=== PATIENT | male | born 1985 | race Caucasian/White ===

== ENCOUNTER 2019-01-04 07:14 | Day surgery (SDC) | payer OTHER ==
--- NOTE | 2019-01-04 08:20 | Anesthesia Consultation ---
Anesthesia Consult and Med Hx Date of service: 01/04/19 - Airway Anesthetic Teeth Evaluation: Good ROM Head & Neck: Adequate Mental/Hyoid Distance: Adequate Mallampati Class: Class II Intubation Access Assessment: Probably Good - Pulmonary Exam CTA: Yes - Cardiac Exam Cardiac Exam: No Murmur - Pre-Operative Health Status ASA Pre-Surgery Classification: ASA1 Proposed Anesthetic Plan: MAC
--- NOTE | 2019-01-04 08:20 | Anesthesia Day of Surgery ---
Anesthesia Day of Surgery - Day of Surgery Patient Examined: Yes Patient H&P Reviewed: Yes Patient is NPO: Yes Beta Blockers: No
[2019-01-04] MEDS ORDERED: DIPRIVAN 10 MG/ML IV ONE ×2 (08:32)
[2019-01-04] MEDS ORDERED: NACL 0.9% 1000 ML 1,000 ML IV SCH (09:00)
[2019-01-04] MEDS ORDERED: WATER FOR IRRIG STERILE ONE (09:10)
[2019-01-04] MEDS ORDERED: VERSED ONE (09:13)
--- NOTE | 2019-01-04 09:53 | Procedure Note ---
Date of procedure: 01/04/19 Pre-op diagnosis: Gastrointestinal bleeding Post-op diagnosis: other (Mild to Moderate Distal Erosive Esophagitis/ Gastritis/No Peptic Ulcer Disease noted/Colon AVM (Transverse Colon) possible source of the GI Bleeding -treated with APC laser/Recto-Sigmoid Polyp removed by Cold,Snare Polypectomy and retrieved) Procedure: EGD with Biopsy/ Colonoscopy with APC laser use and Cold, Snare Polypectomy Anesthesia: MAC Surgeon: WILLIAM CERVANTES Estimated blood loss: minimal Pathology: list Specimen disposition: to lab Condition: stable Disposition: same day (Continue treatment with PPI and avoid aspirin and NSAID for 5 days and follow up in 1 to 2 weeks ([phone]).)
[2019-01-04 10:20] VITALS: BP 118/70
--- NOTE | 2019-01-04 10:37 | Operative Report ---
PROCEDURE: EGD with biopsy. INDICATIONS: This is a 33-year-old gentleman who had a back injury for which he was taking NSAIDs and had some GI bleeding. EGD was done to make sure that there was not any significant upper GI pathology accounting for the patient's bleeding. DESCRIPTION OF PROCEDURE: Procedure was done after getting informed consent with MAC anesthesia. Instrument was passed through the hypopharynx into the esophagus, which showed some mild to moderate distal erosive esophagitis. Stomach showed some mild gastritis. Biopsy was done from the antrum. There were no gastric ulcers noted in the straight or the retroverted view. The pylorus is patent. The duodenum in the first and the second portion appeared normal. There was minimal bleeding from the biopsy sites and no complications associated with the procedure; however, as the procedure was being ended, the patient had a drop in his oxygen saturation and the scope was withdrawn. It was at the end of the examination at any rate and the patient's oxygen level came up after the withdrawal of the scope and once the amount of oxygen given to him was also increased. Other than that, there were no additional complications or any other adverse effect associated with the procedure. ASSESSMENT: History of gastrointestinal bleeding. No active upper GI bleeding noted. Mild to moderate distal erosive esophagitis, gastritis. No peptic ulcer disease noted. There was minimal bleeding from the biopsy sites. No complications associated with the procedure, other than the drop in the oxygen level which came up with the withdrawal of the scope and giving the patient additional oxygen. The patient is to have a colonoscopy done for further assessment. Bernie LORENZO was in the room throughout the entirety of the procedure. JOB# [id number] DANIEL/PHILLIP
--- NOTE | 2019-01-04 10:48 | Operative Report ---
PROCEDURE: Colonoscopy with use of the APC laser and cold snare polypectomy. INDICATIONS: This is a 33-year-old gentleman who had some GI bleeding following the use of NSAID after a back injury. EGD had shown some mild to moderate distal erosive esophagitis and gastritis, but no evidence of any active upper GI bleeding or no evidence of any peptic ulcer disease. DESCRIPTION OF PROCEDURE: The procedure was done after getting informed consent with MAC anesthesia. Initial rectal exam was unremarkable. The patient did have a drop in his oxygen saturation during the EGD with the colonoscopy was done uneventfully and the instrument was passed through the rectum onto the cecum, which was identified by the ileocecal valve and the appendiceal orifice. Visualization was fair. The cecum and ascending colon showed normal mucosa. In the proximal transverse colon, there was colon AVM noted, which may have been the cause of the patient's bleeding. This was treated with APC laser and cauterized. Photo documentation was obtained before and after the procedure. The remaining part of the transverse colon and the descending colon, and sigmoid showed normal mucosa. There was no additional evidence of any polyps, colitis or diverticular disease or AVM. However, in the rectosigmoid area, there was a 10 mm polyp noted that was removed by cold snare polypectomy and retrieved using the biopsy forceps and the rectum appeared normal on the retroverted view. Again, there was minimal bleeding from the polypectomy site and no other additional complications were noted. ASSESSMENT: 1. Gastrointestinal bleeding, possibly from the colon AVM noted in the transverse colon that was treated with the APC laser. Rectosigmoid polyp removed by cold snare polypectomy. There was no evidence of any diverticular disease or no hemorrhoids noted. There were no complications associated with the procedure. Minimal bleeding associated with the procedure. The patient will be asked to resume home medication, but to avoid aspirin, aspirin-related products and NSAIDs for the next 5 days and follow up in the office in 1-2 weeks' time. RN, Bernie Schultz was with me in the room throughout the entirety of the procedure. JOB# [id number] DANIEL/PHILLIP
== END 2019-01-04 07:15 | disposition home or self-care (01) ==
LOC: GIO 07:14
DX: D12.7 Benign neoplasm of rectosigmoid junction (principal); K21.0 Gastro-esophageal reflux disease with esophagitis; K29.70 Gastritis, unspecified, without bleeding; Z79.899 Other long term (current) drug therapy; Z87.891 Personal history of nicotine dependence; Z98.890 Other specified postprocedural states
CPT/HCPCS: 43239; 45382; 45385; 88305; 88342; J2250; J2704; J7030